=== PATIENT | male | born 1980 | race Caucasian/White ===

== ENCOUNTER 2018-11-26 16:13 | Emergency (ER) | payer BC, SELFPAY ==
[2018-11-26 16:16] VITALS: BP 169/95; PULSE 102; RESP 17; TEMP 37.3; O2SAT 98; BMI 48.4
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
== END 2018-11-26 17:46 | disposition home or self-care (01) ==
LOC: ED 17:09
PROVIDERS: Emergency Provider Emergency Medicine
DX: S16.1XXA Strain of muscle, fascia and tendon at neck level, initial encounter (principal); S29.012A Strain of muscle and tendon of back wall of thorax, initial encounter; V89.2XXA Person injured in unspecified motor-vehicle accident, traffic, initial encounter; Y93.89 Activity, other specified; Y92.9 Unspecified place or not applicable
CPT/HCPCS: 72040; 72072; 99284